=== PATIENT | male | born 1965 | race Caucasian/White ===

== ENCOUNTER 2022-07-26 15:23 | Emergency (ER) | payer OTHER ==
[2022-07-26] MEDS: Sodium Chloride 0.9% 1,000 ML IV ONE ×2 (15:39→16:23)
[2022-07-26] MEDS: Ketorolac 30 MG/ML SDV IVPUSH ONE (15:49)
[2022-07-26] MEDS: HYDROmorphone 1 MG/ML Syringe IVPUSH ONE (15:49)
[2022-07-26] MEDS: Ondansetron 4 MG/2 ML SDV IVPUSH ONE (15:57)
[2022-07-26 16:13] LABS: ANION GAP 18.9 mmol/L (5-15); CHLORIDE,CL 97 mmol/L (98-107); ESTIMATED GFR 79 mL/min (>=60); SODIUM,NA 139 mmol/L (136-145)
[2022-07-26] MEDS: Take Home: Ondansetron 4 MG Tab.DIS, 5 Tab Pack PO ONE (18:04)
[2022-07-26] MEDS: Take Home: Ciprofloxacin 500 MG Tab, 2 Tab Pack PO ONE (18:04)
[2022-07-26] MEDS: Take Home: Acetaminophen/oxyCODONE 325-5 MG, 5 Tab Pack PO ONE (18:04)
== END 2022-07-26 18:12 | disposition home or self-care (01) ==
LOC: VM.ED 15:23
DX: N20.0 Calculus of kidney (principal); N12 Tubulo-interstitial nephritis, not specified as acute or chronic
CPT/HCPCS: 74176; 80053; 81001; 85025; 86140; 96361; 96374; 96375; 99284; 99284-25; A9270-GY; J1170; J1885; J2405; J7030; Q0162